=== PATIENT | female | born 1935 | race Caucasian/White ===

== ENCOUNTER 2017-04-13 08:03 | Emergency (ER) | payer MEDICARE ==
[~2017-04-13] VITALS: Ht 160 cm; Wt 104.3 kg
[~2017-04-13 08:03] MED LIST: VERAPAMIL SR 2240 MG PO
--- NOTE | 2017-04-13 08:17 | Emergency Room Report ---
History of Present Illness Time Seen by 08Ministerio Presenting Problem in Triage Pt arrived:Wheelchair Presenting Problem:PT REPORTS BEGAN HAVING "GAS PAINS" EARLY YESTERDAY, STATES THAT WENT AWAY BUT LASTNIGHT BEGAN FEELING LIKE HER HEART WAS BEATING SO FAST IT WAS "TAKING OFF" AND THEN WOULD SLOW DOWN, PT STATES THIS HAPPENED A FEW TIMES LASTNIGHT. PT REPORTS SHE WAS TOLD BY HER PCP APPROX 2 MONTHS AGO THAT SHE HAS "A EXTRA HEART BEAT". PT DENIES PRESENCE OF PAIN AT THIS TIMES, STATES SHE "FEELS NORMAL" AT THIS TIME. 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 N Clinical Suspician of Infection? N Mental Status: 1 - Regular (Normal Baseline) Sepsis Risk:Low Sepsis Risk Have you (or family members/close friends) recently traveled outside the [place]? N If Yes, where/when: Have you had exposure to infectious disease within the past month? N TB? Other? Specify: Comment The patient complains of palpitations and rapid heartbeat. She says she had "gas pains" yesterday but that went away. She describes pains under her LEFT breast that last a few seconds. She says she has had this before. She says that the rapid heartbeat started last night. She has been told on her last doctor's visit that she had a "extra heartbeat". She denies diagnosis of atrial fibrillation. She denies shortness of breath. She says she has diverticulosis and has recurrent rectal bleeding. She had some bleeding for 2 or 3 days last week. She did not see her doctor. She describes bright red rectal bleeding, not present currently. No melena. ALLERGIES Coded Allergies: No Known Allergies (04/13/17) Home Medications Reported Medications VERAPAMIL HCL (Verapamil ER) 240 MG PO QAM PRN HYPERTENSION VERAPAMIL HCL (Verapamil ER) 120 MG PO QPM History Medical History General CAD? No Angina: No MD: No Hypertension? Yes Hyperlipidemia? No CHF? No DVT? No PE? No COPD? No Asthma? No Anemia? No GERD? No Gastric ulcers? No GI Bleed? No Hernia? No Thyroid Problems? No Hypothyroidism? No CVA? No Seizures? No Diabetes? No Renal Insuffiency? No End Stage Renal Disease? No UTI? No Stones? No GB Disease: No Nephritic Syndrome? No Asplenia? No Hepatitis? No Sickle Cell Disease? No Arthritis? No Migraines? No Cataracts? Yes Glaucoma? No MRSA? No HIV? No TB? No Anxiety? No Depression? No Cancer? No More? Yes Additional hx: "EXTRA BEAT" -HEARTBEAT Immunization Hx DT/Tetanus 5-10 Years Ago Flu Refused Pneumonia Refuses Surgical Hx Previous Surgery?Y MOLE REMOVAL FROM EYE polyp removal colonoscopy Family History Family Hx Diabetes No CAD No Hypertension Yes Hyperlipidemia Yes Cancer No TB No Social History Smoking Hx Smoker: Never Smoker Tobacco: No Alcohol Alcohol: No Review of Systems All Other Systems Reviewed and Negative Respiratory denies shortness of breath Cardiovascular chest pain, palpitations Gastrointestinal see HPI, denies nausea, denies vomiting Physical Exam Vital Signs Vital Signs Date Time Temp Pulse Resp B/P Pulse O2 O2 Flow FiO2 Ox Delivery Rate 04/13 937 98.5 91 20 152/50 95 04/13 0900 88 20 160/66 96 04/13 0837 85 20 147/65 96 04/13 0803 98.7 86 22 187/63 95 General Appearance no apparent distress Eye Exam - bilateral eye normal exam, bilateral eye PERRL, bilateral eye EOMI Ear, Nose, Throat hearing grossly normal, normal ENT inspection Neck normal inspection, non-tender, supple, full range of motion Respiratory Status Yes: trachea midline, chest symmetrical, non tender chest. No: respiratory distress. Lung Sounds bilateral: normal breath sounds, lungs clear. Cardiovascular no peripheral edema, no gallop, no JVD, no murmur, no rub, normal peripheral pulses, irregularly irregular Peripheral Pulses Pulses normal Yes Gastrointestinal normal bowel sounds, normal exam, non tender, soft, no organomegaly Extremities non-tender, normal range of motion, normal inspection Neurologic alert, normal exam, oriented x 3 Mental status normal mood/affect Skin intact, normal color, warm/dry Medical Decision Making LABS/Meds/Orders Pt receiving controlled substance in ED? No Results/Orders Laboratory Tests 04/13/17811: TSH 1.30, Thyroxine (T4) 8.3 04/13/17811: Sodium 143, Potassium 3.0 L, Chloride 104, Carbon Dioxide 32, BUN 7, Creatinine 1.0, Estimated Creat Clear 70, Estimated GFR (MDRD) 53 L, Glucose 128 H, Calcium 8.4 L, Total Bilirubin 1.2 H, AST 13 L, ALT 13, Alkaline Phosphatase 36 L, Creatine Kinase 57, CK-MB (CK-2) Rel Index 1.1, CK and CKMB Interp 0.6, Troponin I 0.03, Total Protein 6.4, Albumin 3.2 L, Globulin 3.2, Albumin/ Globulin Ratio 1.0 L, WBC 6.4, RBC 3.06 L, Hgb 9.6 L, Hct 30.1 L, MCV 98.4 H, RDW 14.4, Plt Count 289, Gran % 72.7, Gran # 4.7, Lymphocytes % 22.0, Monocytes % 5.3, Lymphocytes # 1.4, Monocytes # 0.3, PUBS MCHC 31.9, MCH 31.4 H Current Medication Orders Sig/Devan Start time Last Medication Dose Route Stop Time Status Admin Potassium Chloride 0 .STK-MED ONE 04/13 09 DC PO Potassium Chloride 40 MEQ ONCE ONE 04/13 0900 DC 04/13 PO 04/13 0901 0932 Sodium Chloride 10 ML PRN PRN 04/13 0815 DCD IV 04/14 0805 Orders Procedure Date/time Status THYROID STIMULATING HORMONE 04/13 08 Complete THYROXINE (T4) 04/13 0823 Complete ELECTROCARDIOGRAM REQUEST 04/13 08 Active IV SALINE LOCK 04/13 0805 Active [facility] 04/13 08 Active CBC WITH AUTO DIFF 04/13 08 Complete CARDIAC ENZYMES 04/13 08 Complete CHEM 12 PROFILE 04/13 08 Complete [id number] BY SAME 04/13 UNK Active 12 LEAD EKG-BESSON (INITIAL) 04/13 UNK Active CM/EKG CM/EKG Comments EKG interpreted by Rocky Marshall MD: Rhythm: Undetermined rhythm, irregular. Computer electrocardiogram interpretation is atrial fibrillation, although there appear to be some complexes with preceding P waves. There are premature ventricular beats or aberrantly conducted beats as well Rate: 92 [place]: normal Ectopy: none Conduction: normal ST Segment Changes: Nonspecific T Wave Changes: none Q Waves: none No evidence of acute ischemia or injury No prior EKGs available for comparison EKG #2 interpreted by Rocky Marshall MD: Rhythm: sinus Rate: 85 [place]: normal Ectopy: Premature atrial and ventricular complexes. Conduction: normal ST Segment Changes: Nonspecific T Wave Changes: none Q Waves: none No evidence of acute ischemia or injury XRAY/CT/US XRAY/CT/US XRAY chest Comment X-ray interpreted by radiologist: Cardiomegaly without failure. Some increased density in the retrocardiac region on the LEFT which may be due to an area of atelectasis or infiltrate. Vascular crowding in the RIGHT lung base. Clinically, in my opinion, the patient does not have pneumonia. Progress - 9:08 AM: Case discussed with Dr. Schmitt for Dr. Haywood. He recommends discharge. Potassium replacement. Follow-up with Dr. Haywood in the office next Tuesday or Tuesday for repeat chemistries, complete blood count, and further workup of anemia. Departure Departure Disposition DC Home or Self Care(routine) Clinical Impression Primary Impression: Premature contractions or systoles Secondary Impressions: Anemia Qualifiers: Anemia type: unspecified type Qualified Code: D64.9 - Anemia, unspecified Atypical chest pain Hypokalemia Rectal bleeding Condition STABLE Referrals Yobany VELA,A.C. (PCP/Family) Patient Instructions DI for Atypical Chest Pain, DI for Hypokalemia, DI for Palpitations, DI for Premature Ventricular Beats Additional Instructions See Dr. Haywood in the office next Tuesday or Tuesday for a recheck on your potassium level and anemia. Additional instructions for CHEST PAIN: See your physician as soon as possible for further evaluation. Return immediately if worsening chest pain or rapid heart beat, vomiting, shortness of breath, fever, coughing of blood, or rectal bleeding. Prescriptions Current Visit Scripts Potassium Chloride (K-Dur) 20 MEQ PO BID #20 TER ED Critical Care Critical Care No at [id number]
[2017-04-13 08:37] LABS: HEMOGLOBIN 9.6 g/dL (12.2-16.2); LYMPH # 1.4 K/mm3 (0.7-4.5)
--- NOTE | 2017-04-13 08:51 | RADIOLOGY REPORT PS360 ---
CHEST-PORTABLE HISTORY: CHEST PAIN ORDERING PHYSICIAN: Rocky Marshall MD PATIENT AGE: 81 years COMPARISON: None available FINDINGS: There is mild cardiomegaly without failure. There is some increased density in the retrocardiac region on the left which may be due to an area of atelectasis or infiltrate. Vascular crowding is present in the right lung base. Upper lobes are clear. There are degenerative changes in the left shoulder. IMPRESSION: 1. Cardiomegaly without failure. 2. Left lower lobe airspace disease
[2017-04-13] MEDS ORDERED: K-DUR 2020 MEQ PO (09:26)
[2017-04-13 09:37] VITALS: BP 152/50
== END 2017-04-13 09:39 | disposition home or self-care (01) ==
LOC: ER 08:03
PROVIDERS: Emergency Medicine
DX: R07.89 Other chest pain (principal); I10 Essential (primary) hypertension; D64.9 Anemia, unspecified; E87.6 Hypokalemia; K62.5 Hemorrhage of anus and rectum; I51.7 Cardiomegaly